=== PATIENT | male | born 1990 | race Caucasian/White ===

== ENCOUNTER 2020-07-24 13:52 | Emergency (ER) | payer OTHER ==
[~2020-07-24] VITALS: Ht 172.7 cm; Wt 77.1 kg
[2020-07-24 14:42] VITALS: BP 109/63
--- NOTE | 2020-07-24 14:48 | NUR ---
pt in room, assessed and then he asked for something to eat. informed him he needed to see the dr first since he had tooth pain
[2020-07-24] MEDS ORDERED: METRONIDAZOLE500 MG ORAL (14:59)
[2020-07-24] MEDS ORDERED: NAPROXEN500 M1 ORAL (14:59)
[2020-07-24] MEDS ORDERED: AUGMENTIN 875-1 EAC1 ORAL (14:59)
--- NOTE | 2020-07-24 14:59 | Emergency Room Report ---
History of Present Illness General Chief Complaint: Toothache Source: Patient Present Illness HPI 30-year-old male with past medical history of polysubstance abuse presents emergency department with dental pain. States that this is acute on chronic and hurts more when he is chewing hard things. Denies fever, headache, stridor, drooling, shortness of breath, cough, neck pain, rash, photophobia or any other symptoms. Tdap is up-to-date. The patient's symptoms were acute on chronic onset, severity was moderate, duration since several days Quality: Aching Past medical history: Polysubstance abuse Past surgical history: Denies Smoking: ++ Alcohol use: ++ Drug use: ++ Review of systems: CONST: No fevers or chills, No night sweats PULMONARY: No productive cough, No shortness of breath CARDIAC: No chest pain, No palpitations GI: No vomiting, No diarrhea , No melena_or_BRBPR : No dysuria, No hematuria, No discharge NEURO: No new_focal_weakness_or_numbness, No confusion, No vision changes 14 point Review of Systems is otherwise negative except per HPI Physical Exam: GENERAL: Awake_alert_ nontoxic, no acute distress Spo2 96% on RA -normal EYES: Extraocular muscles are intact. Conjunctivae clear. Lids without swelling ENT: Poor dentition. Multiple dental caries. Multiple chipped/Messina 1 and Messina 2 molar fractures External nose and ear normal_in_appearance. Oropharynx clear. Head_atraumatic, Moist_oral_mucosa NECK: No JVD. No meningismus. No thyromegaly. Supple. Trachea midline RESP: Normal respiratory effort. Symmetric rise. No stridor. Clear_to_auscultation_No_rales_No_wheezes CARDIAC: Tachycardic and regular rhytm. No_significant pedal edema. ABDOMEN: Soft. Nondistended. Nontender_No_rebound_or_guarding. MSK: Normal muscle tone, without rigidity. Extremities without asymmetric deformity or swelling. SKIN: Warm and dry. No visible cyanosis or pallor. No petechiae NEUROLOGIC: Alert, oriented x3. Motor_and_sensation_grossly_intact. No truncal ataxia. Gait_normal Psych: Normal mood and affect, normal judgment and insight - COORDINATION OF CARE Case was discussed with: Patient Medical Decision Making/Plan: 30-year-old male here with dental pain after methamphetamine use. Oropharyngeal examination demonstrates poor dentition with multiple dental caries and Messina 1 and Messina 2 chronic appearing fractures. There is no maxillary instability, submandibular/brawny edema, or signs of deep space neck infection. No stridor, hypoxia, or impending respiratory compromise. First dose antibiotics were given here in the emergency department. Will cover for ANUG and discharged with antibiotics (Flagyl and Augmentin). He was advised to follow-up with a dentist within 1 week and to stop doing drugs. Patient verbalizes understanding. Pertinent results reviewed with the patient. I educated the patient on the current treatment plan including the risks, benefits, and alternatives. I also discussed the extent and limitations of the current evaluation. The patient expressed understanding and agreement with plan. I recommended PMD follow-up within 1-2 days. Also advised that the patient return to the Emergency Department as soon as possible if they experience any new, persistent, or worsening symptoms. A Casting Room Operator consult was offered to the patient prior to discharge but the patient declined. All needs were met during this ED visit including food and water, change of clothes, fdc referral/resources, and transportation. Allergies: Coded Allergies: No Known Allergies (Unverified , 07/24/20) COVID-19 Screening Contact w/high risk pt: No Experienced COVID-19 symptoms?: No COVID-19 Testing performed BULK SYSTEM OPERATOR: No Physical Exam Vital Signs Date Time Temp Pulse Resp B/P (MAP) Pulse Ox O2 Delivery O2 Flow Rate FiO2 07/24/20 14:31 99.0 112 20 109/63 (78) 96 Room Air Sp02 EP Interpretation: reviewed, normal Medical Decision Making Diagnostic Impression: Primary Impression: Dentalgia Additional Impression: Dental caries Last Vital Signs Date Time Temp Pulse Resp B/P (MAP) Pulse Ox O2 Delivery O2 Flow Rate FiO2 07/24/20 14:42 99.0 20 109/63 96 Room Air 07/24/20 14:31 112 Disposition: HOME, SELF-CARE Admit Decision Time: 14:58 Condition: Stable Scripts Naproxen* (NAPROXEN*) 500 Mg Tablet. 500 MG ORAL TWICE A DAY for 7 Days, #14 TAB Prov: Angela Carreon D.O. 07/24/20 Metronidazole* (FLAGYL*) 500 Mg Tablet 500 MG ORAL EVERY 8 HOURS for 7 Days, #21 TAB Prov: Angela Carreon D.O. 07/24/20 Amoxicillin/Potassium Clav 875-125* (AUGMENTIN 875-125 TABLET*) 1 Each Tablet 1 TAB ORAL TWICE A DAY, #14 TAB Prov: Angela Carreon D.O. 07/24/20 Referrals: NON PHYSICIAN (PCP) Patient Instructions: Dental Pain Additional Instructions: Instructions for patient/lawn technician: Follow up with your physician in 1-2 days. Follow-up with dentist in 1 week. Stop doing meth. [place] your teeth, floss Do not take your antibiotics with alcohol secondary to possible side effect of nausea. Follow-up with your doctor sooner if your condition requires a more timely clinical reevaluation. Return to the emergency department immediately if you feel that your condition is worsening or if you have any new or concerning symptoms. Review your discharge instructions and take any prescriptions given as instructed. [facility] PROVIDES FREE OR LOW-COST HEALTH SERVICES TO PEOPLE WHO CAN SHOW PROOF THAT THEY LIVE IN [facility] [place]. TO FIND MORE CLINICS PARTNERED WITH [facility] TO PROVIDE SERVICE, PLEASE CALL . Angela Carreon D.O. Jul 24, 2020 14:59
[2020-07-24] MEDS ORDERED: Augmentin 875mg Tab ORAL ONE (15:00)
[2020-07-24] MEDS ORDERED: Naproxen 500mg tab ORAL ONE (15:00)
[2020-07-24] MEDS ORDERED: metroNIDAZOLE 250mg tab ORAL ONE (15:15)
--- NOTE | 2020-07-24 15:21 | NUR ---
ER DISCHARGE NOTE: Patient is cleared to be discharged per ERMD, pt is aox4, on room air, with stable vital signs. pt was given dc and prescription instructions, pt was able to verbalize understanding. pt is able to ambulate with steady gait. pt took all belongings.
== END 2020-07-24 15:26 | disposition home or self-care (01) ==
LOC: EDBD 13:52 → EMR 14:57
DX: K02.9 Dental caries, unspecified (principal)
CPT/HCPCS: 99282